=== PATIENT | female | born 1975 | race Caucasian/White ===

== ENCOUNTER → 2023-08-29 09:22 | Outpatient (REF) | payer BC, SELFPAY ==
[2023-08-29 10:39] LABS: ALT (SGPT) 19 U/L (0-35); AST (SGOT) 24 U/L (14-36); Albumin 4.6 g/dl (3.5-5.0); Alkaline Phosphatase 93 U/L (38-126); Blood Urea Nitrogen 14 mg/dl (7-17); Calcium 9.4 mg/dl (8.4-10.2); Carbon Dioxide 24 mmol/L (22-30); Chloride 102 mmol/L (98-107); Glucose 85 mg/dl (70-99); HDL Cholesterol 78 mg/dl; LDL Cholesterol, Calculated 166 mg/dl; Potassium 4.3 mmol/L (3.5-5.1); Sodium 132 mmol/L (135-145); Total Bilirubin 0.7 mg/dl (0.2-1.3); Total Cholesterol 253 mg/dl (50-199); Total Protein 7.9 g/dl (6.3-8.2); Triglyceride 47 mg/dl (10-149); Very Low Density Lipoprotein 9 mg/dl (0-30); eGFR > 60.00
== END ==
LOC: REG 09:22
PROVIDERS: ATTENDING PHYSICIAN Family Medicine
DX: Z00.00 Encounter for general adult medical examination without abnormal findings (principal); E78.5 Hyperlipidemia, unspecified
CPT/HCPCS: 36415; 80053; 80061

== ENCOUNTER 2023-10-10 03:33 | Emergency (ER) | payer BC, SELFPAY ==
[2023-10-10 03:36] VITALS: BP 127/74
--- NOTE | 2023-10-10 04:09 | ED.GENMED ---
History of Present Illness
General
Chief Complaint: Musculo-Skeletal Complaint
Source: patient
Time Seen by Provider: 10/10/23 04:06
Travel History
Have you had any contact with someone who has COVID-19?: No
Do you have any symptoms of coronavirus? Fever > 100 degrees, chills, cough, shortness of breath, sore throat, loss of taste or smell, muscle aches, or headache?: No
History of Present Illness
History of Present Illness:
48-year-old female presents to the emergency room complaining of pain in her left ankle and foot. Patient was playing basket with her kids in the evening when she suffered an inversion injury. She took ibuprofen, applied ice and elevated her leg.
However the pain woke her from sleep tonight. She was concerned she may have broken her ankle prompting her to come to the emergency room tonight. No other injuries. She has no significant medical problems.
Phy Exam
Physical Exam
Physical Exam:
General: Awake, Alert, Oriented X3. No acute distress.
Vitals: unremarkable
Head: Atraumatic
Eyes: Pupils equal, EOMI
Neck: Trachea midline
Neuro: Nonfocal
Skin: Warm, dry, no rash
Extremities: Swelling noted left ankle with some ecchymosis over the lateral foot. There is some tenderness palpation over the lateral malleolus but also over the base of the fifth metatarsal. Neurovascularly the foot is intact.
Course
Orders/Labs/Results
Orders:
Orders
10/10/23 03:39
CR Ankle - Left Min 3 Views Urgent
Comment:
Reason For Exam: injury, pain with weight bearing
10/10/23 04:09
Foot, Left 3 View [CR Foot - Left Min 3 Views] Urgent
Comment:
Reason For Exam: pain, inversion injury
Vital Signs
Initial and Last Documented VS:
Initial Vital Signs
Pulse Resp BP Pulse Ox
88 16 127/74 99
10/10/23 03:36 10/10/23 03:36 10/10/23 03:36 10/10/23 03:36
Last Documented Vital Signs
Pulse Resp BP Pulse Ox
70 18 127/74 99
10/10/23 05:27 10/10/23 05:27 10/10/23 03:36 10/10/23 05:27
MDM/Problems Addressed
Differential Diagnosis Includes:
Fracture lateral malleolus fracture fifth metatarsal, sprain
MDM/Problems Addressed:
Imaging shows an avulsion fracture which appears to be off of the calcaneus? Pt placed in boot. Ortho f/u
*Radiology
Radiology exam reviewed: preliminary read by ED provider (Suspected avulsion fracture)
*Pulse Oximetry
Patient hypoxic: no
*Critical Care Note
Total Time (30-74mins, 75-104mins- exclusive of procedures): Not Applicable
ED Attending Note
-
Portions of this chart may have been created with voice recognition software.� Occasional wrong word or��sound alike� substitutions may have occurred due to the inherent limitations of voice recognition software.
Discharge Plan
Departure
Patient Disposition: Home (Routine Discharge)
Date of Disposition: 10/10/23
Time of Disposition: 04:33
Patient with high blood pressure during this ER visit?: No
Condition: Good
Discharge Problem:
Avulsion fracture of ankle
Instructions: Ankle Fracture (DC)
Referrals:
Harman High MD [Active] -
Activity Restrictions/Additional Instructions:
Please call Thursday morning to make an appointment for follow up.
Interventions
Interventions:
*Risk Screen - Suicide Last Done: 10/10/23 03:36
*General Assessment Last Done: 10/10/23 03:36
*Neglect/Abuse Screening Last Done: 10/10/23 03:36
ED- Fall Risk Assessment Last Done: 10/10/23 05:27
*ED COVID-19 Vaccine History Last Done: 10/10/23 05:27
*Nursing Disposition Last Done: 10/10/23 05:27
ED-Musculoskeletal Assessment Last Done: 10/10/23 05:10
Discharge Date and Time
Discharge Date/Time: 10/10/23 05:29
Print Language: GREEK
== END 2023-10-10 05:29 | disposition home or self-care (01) ==
LOC: EMR 03:33
PROVIDERS: EMERGENCY PHYSICIAN Emergency Medicine; FAMILY PHYSICIAN Family Medicine
DX: S82.892A Other fracture of left lower leg, initial encounter for closed fracture (principal); X50.1XXA Overexertion from prolonged static or awkward postures, initial encounter
CPT/HCPCS: 99283; 73610; 73630

== ENCOUNTER → 2023-11-11 07:24 | Outpatient (REF) | payer BC, SELFPAY | LOC: RAD 07:24 | PROVIDERS: ATTENDING PHYSICIAN Family Medicine | DX: S82.892G Other fracture of left lower leg, subsequent encounter for closed fracture with delayed healing (principal); M79.672 Pain in left foot; M25.572 Pain in left ankle and joints of left foot | CPT/HCPCS: 73700 ==

== ENCOUNTER → 2024-07-20 17:05 | Outpatient (REF) | payer BC, SELFPAY | LOC: WDC 17:05 | PROVIDERS: ATTENDING PHYSICIAN Family Medicine | DX: Z12.31 Encounter for screening mammogram for malignant neoplasm of breast (principal) | CPT/HCPCS: 77063; 77067 ==

== ENCOUNTER → 2024-09-28 08:26 | Outpatient (REF) | payer BC, SELFPAY | LOC: WDC 08:26 | PROVIDERS: ATTENDING PHYSICIAN Family Medicine | DX: R92.8 Other abnormal and inconclusive findings on diagnostic imaging of breast (principal) | CPT/HCPCS: 76642 ==

== ENCOUNTER → 2025-01-03 07:48 | Outpatient (REF) | payer BC, SELFPAY ==
[2025-01-03 17:42] LABS: Hematocrit 39.5 % (37.0-47.0); Hemoglobin 13.5 g/dL (12.0-16.0); Mean Corp Hgb Conc. 34.2 g/dL (33.0-37.0); Mean Corpuscular Volume 88.6 fL (81.0-99.0); Nucleated Red Blood Cells % 0 %; Platelet Count 312 10^3/uL (130-400); Red Cell Dist. Width 12.5 % (11.5-14.5)
[2025-01-03 18:01] LABS: ALT (SGPT) 12 U/L (0-35); AST (SGOT) 19 U/L (14-36); Albumin 4.7 g/dl (3.5-5.0); Alkaline Phosphatase 88 U/L (38-126); Blood Urea Nitrogen 12 mg/dl (7-17); Calcium 9.3 mg/dl (8.4-10.2); Carbon Dioxide 23 mmol/L (22-30); Chloride 103 mmol/L (98-107); Glucose 80 mg/dl (70-99); HDL Cholesterol 55 mg/dl; LDL Cholesterol, Calculated 140 mg/dl; Potassium 4.0 mmol/L (3.5-5.1); Sodium 136 mmol/L (135-145); Total Protein 7.6 g/dl (6.3-8.2); Very Low Density Lipoprotein 10 mg/dl (0-30); eGFR > 60.00
== END ==
LOC: REG 07:48
PROVIDERS: ATTENDING PHYSICIAN Family Medicine
DX: E78.5 Hyperlipidemia, unspecified (principal); Z00.00 Encounter for general adult medical examination without abnormal findings
CPT/HCPCS: 36415; 80053; 80061; 85025